=== PATIENT | female | born 1975 | race Asian ===

== ENCOUNTER 2019-07-16 10:40 | Emergency (ER) | payer OTHER ==
--- NOTE | 2019-07-16 10:44 | UC ---
Cardiac HPI - HPI Summary HPI Summary: 44 yo female presents with feeling that her heart is racing. She tells me that she has had a dry cough for the last week. She called her PCP 2 days ago and did a telehealth visit and was prescribed zpak. She did not have COVID testing done. She had left over azithromycin at home and took 500mg - had not picked up her prescription yet. Last night she was resting and noticed her heart felt like it was racing and then slowing and then racing again. This has been constant since that time. She also endorses a "tingling" sensation in her chest and b/l hands that has resolved. She notes hx of "prediabetes" and heart murmur and SHILO. She denies fever, chills, sore throat, sinus symptoms, SOB, chest pain , abdominal pain, n/v. No recent travel. No known exposure to positive COVID. - History of Current Complaint Stated Complaint: COUGH HEART RACING Time Seen by Provider: 07/16/19 10:42 Hx Obtained From: Patient Onset/Duration: Sudden Onset - Allergy/Home Medications Allergies/Adverse Reactions: Allergies Allergy/AdvReac Type Severity Reaction Status Date / Time ENVIRONMENTAL Allergy RUNNY Uncoded 07/16/19 11:22 NOSE, SNEEZING Home Medications: Home Medications Iron Combinations [Iron Complex] 1 cap PO DAILY 03/07/13 [History Confirmed ] PMH/Surg Hx/FS Hx/Imm Hx - Additional Past Medical History Additional PMH: Anemia - Surgical History Surgical History: None - Family History Known Family History: Positive: Hypertension - Social History Lives: With Family Alcohol Use: Occasionally Substance Use Type: None Smoking Status (MU): Never Smoked Tobacco Review of Systems All Other Systems Reviewed And Are Negative: No Constitutional: Positive: Negative Skin: Positive: Negative Eyes: Positive: Negative ENT: Positive: Negative Respiratory: Positive: Cough Cardiovascular: Positive: Palpitations Gastrointestinal: Positive: Negative Genitourinary: Positive: Negative Neurovascular: Positive: Negative Neurological/Mental Status: Positive: Negative Psychological: Positive: Negative Physical Exam - Summary Physical Exam Summary: GENERAL: NAD. WDWN. No pain distress. SKIN: No rashes, sores, or open wounds. HEENT: Head: AT/NC Eyes: PERRLA. EOM intact. Conjunctiva clear without inflammation or discharge. Ears: Hearing grossly normal. TMs intact, no bulging, erythema, or edema. Nose: Nasal mucosa pink and moist. NTTP maxillary and frontal sinus. Throat: Posterior oropharynx without exudates, erythema, or tonsillar enlargement. Uvula midline. NECK: Supple. Nontender. No lymphadenopathy. CHEST: CTAB. No r/r/w. No accessory muscle use. Breathing comfortably and in no distress. CV: RRR. Pulses intact. Brisk cap refill. ABDOMEN: Soft. NTTP. No distention or guarding. Bowel sounds present NEURO: Alert. PSYCH: Age appropriate behavior. Triage Information Reviewed: Yes Vital Signs: Vital Signs: Temp Pulse Resp BP Pulse Ox 99.1 F 115 18 116/75 98 07/16/19 11:15 07/16/19 11:15 07/16/19 11:15 07/16/19 11:15 07/16/19 11:15 Vital Signs Reviewed: Yes Diagnostics - EKG Summary of EKG Findings: 107bpm Sinus tach. No STEMI as read by Dr. Caldera - Assessment/Plan Course Of Treatment: EKG as above. Exam WNL. Given her continued feelings of palpitations/heart racing - recommend going to the ED for further evaluation. Pt was agreeable to this. She declined ambulance transfer at this time. - Clinical Impression Provider Diagnosis: Palpitations, Cough Discharge ED - Sign-Out/Discharge Documenting (check all that apply): Patient Departure All imaging exams completed and their final reports reviewed: No Studies - Discharge Plan Condition: Stable Disposition: HOME-RECOMMEND TO ED Referrals: Forest Andres MD [Primary Care Provider] - Additional Instructions: I recommend that you go to the ER for further evaluation of your palpitations and feelings of heart racing - Billing Disposition and Condition Condition: STABLE Disposition: Home-Recommend to ED
--- OUTSIDE RECORDS SUMMARY | 2019-07-16 11:18 | XMS REPORT | Continuity of Care Document ---
:1975 External Reference #:[id number] Author Name Dipti Donnelly NP Address [address] [place] [address] Care Team Providers Name Role Phone drawing supervisor - Obstetrics & Gynecology Care Team Information [employer] Director [phone] [facility] - Care Team Information [employer] Director [phone] Gastroenter[facility] Forest Andres MD - Family Medicine Care Team Information [employer] Director Problems Description No Active Problems Social History Type Date Description Comments Sex Unknown Tobacco Use Start: Unknown Nonsmoker Tobacco Use Start: Unknown Patient has never smoked Smoking Status Reviewed: 07/14/19 Patient has never smoked Allergies, Adverse Reactions, Alerts Description No Known Drug Allergies Medications Active Medications SIG Qnty Indications Ordering Provider Date Azithromycin two tablets by 2tabs J20.9 Dipti Nicole 07/14/2019 500mg mouth once. WADE Donnelly Tablets Michelle Allergy 1 by mouth every Unknown 180mg day prn Tablets Immunizations CPT Code Status Date Vaccine Lot # [id number] Given 05/23/2017 Influenza Vac, Quadrivalent, Slit Virus, Im [id number] Given 01/17/2016 Influenza Vac, Quadrivalent, Slit Virus, Im [id number] Vital Signs Date Vital Result Comment 03/27/2018 8:01am BP Systolic 84 mmHg BP Diastolic 62 mmHg Heart Rate 56 /min Body Temperature 98.0 F Respiratory Rate 16 /min Height 60 inches 5'0" Weight 114.00 lb BMI (Body Mass Index) 22.3 kg/m2 03/12/2017 3:56pm BP Systolic 86 mmHg BP Diastolic 58 mmHg Heart Rate 88 /min Body Temperature 98.1 F Respiratory Rate 12 /min Height 60.5 inches 5'0.50" Weight 108.00 lb BMI (Body Mass Index) 20.7 kg/m2 Results Description No Information Available Procedures Date Code Description Status 04/08/2018 [id number] Mammogram Completed 04/06/2017 [id number] Mammogram Completed 01/20/2016 [id number] Mammogram Completed 03/04/2014 [id number] Mammogram Completed 03/12/2013 [id number] Colonoscopy Completed Medical Devices Description No Information Available Encounters Type Date Location Provider Dx Diagnosis Office Visit 07/14/2019 Main Office Dipti Nicole J20.9 Acute bronchitis, 1:30p WADE Donnelly unspecified R05 Cough Assessments Date Code Description Provider 07/14/2019 J20.9 Acute bronchitis, unspecified Dipti Donnelly NP 07/14/2019 R05 Cough Dipti Donnelly NP Plan of Treatment 07/14/2019 - Dipti Donnelly NPJ20.9 Acute bronchitis, unspecifiedNew Medication:Azithromycin 500 mg - two tablets by mouth once.Comments:Upper respiratory infections are rough on your system. Not only do they make you really tired but they dehydrate you really quickly! Supportive care: 1) Make sure you are resting. This is the only way the body can take the energy it needs to heal itself. 2) Fluids, fluids, fluids! - Drink a lot of water or other caffeine free, clear liquids - Use a humidifier in your room at night - If tolerated, use a saline nasal spray to help clear out your sinuses 3) Cough and blow it out, the more you can getout of your system the better4) Make sure you are washing your hands well so you are not spreading your illness to the community. We expect you to feel better in 48-72 hours with the use of antibiotic,if you are not improving or begin to get worse, please contact the office to be seen again.R05 CoughComments:Coughing is rough on your system. Not only do they make you really tired but they dehydrate you really quickly! Supportive care: 1) Make sure you are resting. This is the only way the body can take theenergy it needs to heal itself. 2) Fluids, fluids, fluids! - Drink a lot of water or other caffeinefree, clear liquids - Use a humidifier in your room at night - If tolerated, use a saline nasal spray to help clear out your sinuses 3) Cough and blow it out, the more you can get out of your system the better4) Make sure you are washing your hands well so you are not spreading your illness to the community. 5) You can take Acetaminophen or Ibuprofen as directed for pain Call or return if worseningsymptomsAllComments:Medication Management Patient Understands medications he 's taking? Yes No Are there Barriers to Adherence? Yes No Has the patient been asked about herbal supplements and therapies, andOTC meds? Yes No Care Plan1. Patient has been queried about patient's goals/preferences and functional/ lifestyle goals at relevant visits. If relevant, describe: na2. Treatment goals as explained to the patient: above3. Are there barriers to meeting treatment goals? Yes No If Yes, please describe: telemedicine, disease process4. Self-Management goals as described to the patient: Yes NoAs always, we strongly encourage a healthy diet and making physical activity a partof your every day life. If you have questions about how or where to start, please contact the office.Follow up:Please contact front office staff to set up the online patient portal Functional Status Description No Information Available Mental Status Description No Information Available Referrals Description No Information Available
[2019-07-16 11:21] VITALS: BP 116/75
== END 2019-07-16 11:27 | disposition home health service (06) ==
LOC: UCEAST 10:40
DX: R00.2 Palpitations (principal); R05 Cough
CPT/HCPCS: 93005; 99212; G0463

== ENCOUNTER 2019-07-16 11:58 | Emergency (ER) | payer OTHER ==
--- NOTE | 2019-07-16 12:11 | ED ---
Palpitations / Dysrhythmia - HPI Summary HPI Summary: 44 y/o F with hx pre diabetes and heart murmur presenting from [facility] c/o racing heart and palpitations starting 2300 yesterday. No chest pain currently, shortness of breath, fever. She reports cough and chest discomfort when she coughs x1 week and is already on azithromycin from her PCP. Symptoms aggravated by nothing. Symptoms alleviated by nothing. Medications reviewed. She started taking azithromycin recently. She takes Benadryl every night to help her sleep which she thinks may be contributing to her HR. Went to [facility], told to come to ED. - History of Current Complaint Chief Complaint: EDDysrhythmPalp Time Seen by Provider: 07/16/19 12:04 Hx Obtained From: Patient Onset/Duration: Lasting Hours, Still Present Timing: Constant Severity Currently: None Character: Fast Aggravating: Nothing Alleviating: Nothing - Allergy/Home Medications Allergies/Adverse Reactions: Allergies Allergy/AdvReac Type Severity Reaction Status Date / Time ENVIRONMENTAL Allergy RUNNY Uncoded 07/16/19 11:22 NOSE, SNEEZING Home Medications: Home Medications diPHENhydraMINE PO* [Benadryl PO 25 MG TAB*] 25 mg PO BEDTIME PRN 07/16/19 [ History Confirmed 07/16/19] PMH/Surg Hx/FS Hx/Imm Hx Endocrine/Hematology History: Reports: Hx Diabetes - pre Cardiovascular History: Reports: Other Cardiovascular Problems/Disorders - heart murmur Denies: Hx Hypertension Respiratory History: Denies: Hx Asthma, Other Respiratory Problems/Disorders GI History: Denies: Other GI Disorders History: Denies: Other Problems/Disorders Musculoskeletal History: Denies: Other Musculoskeletal History Sensory History: Reports: Hx Contacts or Glasses - glasses Opthamlomology History: Reports: Hx Contacts or Glasses - glasses Neurological History: Denies: Other Neuro Impairments/Disorders - Cancer History Hx Chemotherapy: No Hx Radiation Therapy: No - Surgical History Surgical History: Yes Surgery Procedure, Year, and Place: colonoscopy Hx Anesthesia Reactions: No Infectious Disease History: No Infectious Disease History: Denies: Traveled Outside the [place] in Last 30 Days - Family History Known Family History: Positive: Hypertension - Social History Alcohol Use: Occasionally Hx Substance Use: No Substance Use Type: Reports: None Hx Tobacco Use: No Smoking Status (MU): Never Smoked Tobacco Review of Systems Negative: Fever Positive: Palpitations, Other - racing heart. Negative: Chest Pain Positive: Cough, Other - chest discomfort when coughing. Negative: Shortness Of Breath All Other Systems Reviewed And Are Negative: Yes Physical Exam - Summary Physical Exam Summary: Constitutional: Well-developed, Well-nourished, Alert. (-) Distressed Skin: Warm, Dry HENT: Normocephalic; Atraumatic Eyes: Conjunctiva normal Neck: Musculoskeletal ROM normal neck. (-) JVD, (-) Stridor, (-) Nuchal rigidity Cardio: Rhythm regular, tachycardic, Heart sounds normal; Intact distal pulses; Radial pulses are 2+ and symmetric. (-) Murmur Pulmonary/Chest wall: Effort normal. (-) Respiratory distress, (-) Wheezes, (-) Rales Abd: Soft, (-) tenderness, (-) Distension, (-) Guarding, (-) Rebound Musculoskeletal: (-) Edema Lymph: (-) Cervical adenopathy Neuro: Alert, Oriented x3 Psych: Mood and affect Normal Triage Information Reviewed: Yes Vital Signs On Initial Exam: Initial Vitals Temp Pulse Resp BP Pulse Ox 97.9 F 113 14 124/79 98 07/16/19 12:00 07/16/19 12:00 07/16/19 12:00 07/16/19 12:00 07/16/19 12:00 Vital Signs Reviewed: Yes Procedures - Sedation Patient Received Moderate/Deep Sedation with Procedure: No Diagnostics - Vital Signs Vital Signs Temp Pulse Resp BP Pulse Ox 07/16/19 12:00 97.9 F 113 14 124/79 98 - Laboratory Result Diagrams: 07/16/19 12:16 07/16/19 12:16 Lab Statement: Any lab studies that have been ordered have been reviewed, and results considered in the medical decision making process. - EKG 1214 Cardiac Rate: NL - 105 BPM EKG Rhythm: Sinus Tachycardia Summary of EKG Findings: An EKG at 1214 reveals sinus tachycardia 105 BPM. T wave inversions in lead 3. No STEMI. No acute changes. ED physician has reviewed and interpreted this EKG. Re-Evaluation - Re-Evaluation First Eval Re-Evaluation Time: 13:21 Change: Improved - patient agrees to d/c Course/Dx - Course Course Of Treatment: 44 y/o F p/w tachycardia. - well appearing, mildly elevated HR low 100's. Labs w negative d dimer, normal electrolytes. Normal TSH w slightly elevated Free T4, do not suspect hyperthyroidism but can follow up w PCP. HR returned to normal without intervention. - denies fevers, CP at this time. Advised to stay home if she feels sick. - Diagnoses Provider Diagnoses: Palpitations Discharge ED - Sign-Out/Discharge Documenting (check all that apply): Patient Departure - Discharge Plan Condition: Stable Disposition: HOME Patient Education Materials: Heart Palpitations (ED), Tachycardia (ED) Referrals: Forest Andres MD [Primary Care Provider] - Additional Instructions: You were seen in the emergency department for a fast heart rate. Your labs did not show any cause for this. Your heart rate returned to normal without any intervention. Please follow up with your primary care doctor in next 2-3 days and return to emergency department for chest pain, trouble breathing, worsening or concerning symptoms. It was a pleasure taking care of you today. - Billing Disposition and Condition Condition: STABLE Disposition: Home - Attestation Statements Document Initiated by Aristeoibe: Yes Documenting Scribe: Mariela Boyce Provider For Whom Fuentes is Documenting (Include Credential): Sergio Hills MD Scribe Attestation: I, Mariela Boyce, scribed for Sergio Hills MD on 07/16/19 at 1330. Scribe Documentation Reviewed: Yes Provider Attestation: The documentation as recorded by the aristeoibMariela edwards accurately reflects the service I personally performed and the decisions made by me, Sergio Hills MD Status of Scribe Document: Viewed
[2019-07-16 12:26] LABS: ABS Lymphocytes 1.4 10^3/ul (1.0-4.8); ABS Monocytes 0.3 10^3/ul (0-0.8); ABS Neutrophils 7.3 10^3/ul (1.5-7.7); Eosinophil % 0.2 %; Hematocrit 45 % (35-47); Hemoglobin 15.3 g/dL (12.0-16.0); Lymphocyte % 15.8 %; Mean Corpuscular HGB Conc 34 g/dL (31-36); Mean Corpuscular Hemoglobin 32 pg (27-31); Mean Corpuscular Volume 92 fL (80-97); Mean Platelet Volume 9.4 fL (7.4-10.4); Platelet Count 209 10^3/uL (150-450); Red Blood Count 4.83 10^6 /uL (3.70-4.87); Red Cell Distribution Width 12 % (10-15)
[2019-07-16 12:44] LABS: Potassium 3.4 mmol/L (3.5-5.0)
[2019-07-16 12:45] LABS: Albumin 4.5 g/dL (3.2-5.2); Albumin/Globulin Ratio 1.7 (1-3); Calcium 9.5 mg/dL (8.6-10.3); EGFR African American 96.2 (>60); EGFR Non-African American 79.5 (>60); Globulin 2.7 g/dL (2-4); Total Bilirubin 0.6 mg/dL (0.2-1.0); Total Protein 7.2 g/dL (6.4-8.9)
[2019-07-16 12:51] LABS: HCG Pregnancy 1.08 mIU/mL
[2019-07-16 13:16] VITALS: BP 116/82
[2019-07-16 13:26] LABS: TSH (Thyroid Stimulating Horm) 0.96 mcIU/mL (0.34-5.60)
[2019-07-16 13:28] LABS: Free T4 1.28 ng/dL (0.61-1.12)
== END 2019-07-16 13:15 | disposition home or self-care (01) ==
LOC: ED 11:58
DX: R00.2 Palpitations (principal); Z86.79 Personal history of other diseases of the circulatory system; R94.31 Abnormal electrocardiogram [ECG] [EKG]
CPT/HCPCS: 36415; 80053; 84439; 84443; 84702; 85025; 85379; 93005; 99282